=== PATIENT | female | born 1960 | race Caucasian/White ===

== ENCOUNTER 2017-12-18 10:37 | Observation (INO) | payer SELFPAY ==
[2017-12-18] MEDS ORDERED: NS 0.9% 1000 ML* 1,000 ML IV ONE ×2 (10:49→12:12)
[2017-12-18] MEDS ORDERED: Nitroglycerin TAB 0.4 MG* 0.4 MG TAB SL ONE (11:32)
--- NOTE | 2017-12-18 11:33 | RAD ---
Indication: Chest pain. Single frontal view of the chest performed at 1100 hours was reviewed. No prior study is available for comparison. No mediastinal shift is noted. Heart is of normal size and configuration. Lung beltran appear clear. IMPRESSION: NO ACTIVE CARDIOPULMONARY DISEASE IS NOTED.
[2017-12-18 11:49] LABS: INR 1.05 (0.77-1.02)
[2017-12-18 11:55] LABS: EGFR Non-African American 64.1 (>60)
--- NOTE | 2017-12-18 12:19 | RAD ---
Indication: Confusion. CT of the brain was performed without IV contrast. Ventricular structures are midline. No midline shift is noted. The extra-axial spaces are unremarkable. There is no evidence of intracranial mass or hemorrhage. No other high or low density lesions are identified. Mastoid air cells and paranasal sinuses are otherwise unremarkable. IMPRESSION: No intracranial mass or hemorrhage is noted.
[2017-12-18 12:26] LABS: ABS Basophils 0.1 10^3/ul (0-0.2); ABS Eosinophils 0.1 10^3/ul (0-0.6); ABS Lymphocytes 2.1 10^3/ul (1.0-4.8); ABS Monocytes 0.6 10^3/ul (0-0.8); ABS Neutrophils 9.1 10^3/ul (1.5-7.7); ABS Nucleated RBC 0 10^3/ul; Eosinophil % 0.4 % (0-6); Hematocrit 38 % (35-47); Hemoglobin 13.1 g/dl (12.0-16.0); Lymphocyte % 17.7 % (25-47); Mean Corpuscular HGB Conc 34 g/dl (31-36); Mean Corpuscular Hemoglobin 35 pg (27-31); Mean Corpuscular Volume 102 fL (80-97); Mean Platelet Volume 7.8 um3 (7.4-10.4); Nucleated Red Blood Cells % 0.1; Platelet Count 254 10^3/ul (150-450); Red Blood Count 3.77 10^6/ul (4.0-5.4); Red Cell Distribution Width 14 % (10.5-15)
[2017-12-18] MEDS ORDERED: Iodixanol* (CONTRAST) 320 MG/ML 100 ML SDV IV ONE (12:42)
[2017-12-18] MEDS ORDERED: Magnesium Sulfate 2 GM IV* 2 GM/50 ML BAG IVPB ONE (12:44)
[2017-12-18 13:55] LABS: Urine Appearance Clear; Urine Blood Negative (Negative); Urine Color Straw; Urine Ketones 2+ (Negative); Urine Protein Negative (Negative); Urine Urobilinogen Negative (Negative)
--- NOTE | 2017-12-18 14:07 | RAD ---
Indication: Positive d-dimer, epigastric pain. Contrast:Administered 64.2 ml of VISAPAQUE 320 mg/ml CTA of the chest, abdomen and pelvis was performed after IV contrast. Coronal and sagittal reconstructed images were obtained. The inferior thyroid lobes are unremarkable. There is no mediastinal or hilar adenopathy. The heart demonstrates no pericardial effusion. The pulmonary arterial tree is well opacified. There are no filling defects present to suggest pulmonary embolus. The heart demonstrates no pericardial effusion. The changes and major bronchi appear patent. The lung beltran demonstrate no evidence of alveolar consolidation. No pleural fluid is identified. No pneumothorax is noted. The thoracic aorta demonstrates no evidence of aortic dissection or aneurysmal dilatation. No pericardial effusion is noted. CT of the abdomen demonstrates liver to be normal in size. No focal lesions or intrahepatic ductal dilatation is noted. The gallbladder demonstrates no calcified gallstones, pericholecystic fluid or wall thickening. The spleen is normal in size. Pancreas demonstrates no mass or pancreatic duct dilatation. The gallbladder demonstrates no calcified gallstones. No pericholecystic fluid or wall thickening is identified. The stomach is distended. There is circumferential wall thickening of the gastric antrum. The possibility of antral gastritis should BE considered. Small amount of contrast is noted in the small bowel. The possibility of the shoulder gastric outlet obstruction should BE considered. No adrenal masses are noted. The kidneys demonstrate symmetric nephrograms without hydronephrosis. There is symmetric excretion bilaterally. Small bowel demonstrates no abnormal dilatation. Stool is present throughout the colon. No retroperitoneal or pelvic lymphadenopathy is noted. Urinary bladder is distended. No hernias are noted. Degenerative changes of the lower lumbar spine is noted. IMPRESSION: No evidence of pulmonary embolus is noted. No evidence of thoracic aortic dissection or aneurysmal dilatation is noted. There is a moderately dilated stomach with mucosal thickening of the distal antrum and the possibility of antral gastritis with a partial gastric outlet obstruction should BE considered.
[2017-12-18] MEDS ORDERED: Ondansetron INJ* 2 MG/ML VIAL IV ONE (15:57)
--- NOTE | 2017-12-18 16:40 | ED ---
William Pires Jennifer, scribed for Lenard Krause MD on 12/18/17 at 1130 . HPI Chest Pain - HPI Summary HPI Summary: The patient is a 57 year old female who comes to [facility] via ambulance for chest pain that began two hours ago. The patient describes she woke up this morning and felt like she had low blood sugar. She drank some juice and ate a fiber one bar. However, she began to have midsternal chest pain and vomited a few times. She rates the chest pain a 5/10. The patient was given NTG and Aspirin in the ambulance but reports no change in pain. She additionally complains of nausea, numbness in her left fingers, shaking in her right arm, weakness in both arms, swelling and cramping in both ankles, headache at the temples, a hot flushed feeling, lightheaded, confusion, and feeling like shes dreaming. The patient denies shortness of breath. She adds that this felt similar to when she had pancreatitis. The patient was accompanied by a friend who added that the last time she appeared to be normal was two days ago. - History of Current Complaint Chief Complaint: EDChestPainROMI Time Seen by Provider: 12/18/17 10:47 Hx Obtained From: Patient Onset/Duration: Started Hours Ago - two hours, Still Present Timing: Constant Initial Severity: Moderate Current Severity: Moderate Pain Intensity: 5 Pain Scale Used: 0-10 Numeric Chest Pain Location: Mid Sternal Chest Pain Radiates: No Aggravating Factor(s): Nothing Alleviating Factor(s): Nothing Associated Signs and Symptoms: Positive: Other: - vomiting, nausea, numbness in left fingers, shaking in right arm, weakness in both arms, swelling and cramping of the ankles, headache at the temples, hot flushed feeling, lightheaded, confusion, feeling like she's dreaming. NEGATIVE: shortness of breath Related History: Similar Episode/Dx as: - pancreatitis. Also had similar pain three weeks ago - Allergy/Home Medications Allergies/Adverse Reactions: Allergies Allergy/AdvReac Type Severity Reaction Status Date / Time No Known Allergies Allergy Verified 12/18/17 12:00 Home Medications: Home Medications Ascorbic Acid TAB* [Vitamin C TAB*] 500 mg PO DAILY 12/18/17 [History Confirmed 12/18/17] Aspirin EC TAB* [Ecotrin EC Low Dose 81 MG*] 81 mg PO DAILY 12/18/17 [History Confirmed 12/18/17] Calcium Carbonate [Calcium] 1,200 mg PO DAILY 12/18/17 [History Confirmed ] Cholecalciferol TAB* [Vitamin D TAB*] 1,000 unit PO DAILY 12/18/17 [History Confirmed 12/18/17] Citalopram TAB* [CeleXA TAB*] 20 mg PO DAILY 12/18/17 [History Confirmed ] Docusate Sodium [Stool Softener] 100 mg PO DAILY 12/18/17 [History Confirmed ] Ferrous Gluconate TAB* [Fergon TAB*] 325 mg PO DAILY 12/18/17 [History Confirmed 12/18/17] Fluticasone NASAL SPRAY 50MCG* [Flonase NASAL SPRAY 50MCG*] 2 spray BOTH NARES DAILY 12/18/17 [History Confirmed 12/18/17] Insulin GLARGINE(*) [Lantus(*)] 7 units SUBCUT ONCE 12/18/17 [History Confirmed 12/18/17] Insulin LISPRO* [HumaLOG*] 5 units SUBCUT BID 12/18/17 [History Confirmed ] Insulin LISPRO* [HumaLOG*] 10 units SUBCUT QAM 12/18/17 [History Confirmed 12/18] Losartan TAB* [Cozaar TAB*] 25 mg PO DAILY 12/18/17 [History Confirmed 12/18/17] Lovastatin(NF) [Mevacor(NF)] 20 mg PO DAILY 12/18/17 [History Confirmed 12/18/17 ] Magnesium Oxide [Magnesium] 250 mg PO BID 12/18/17 [History Confirmed 12/18/17] Niacin ER TAB* [Niaspan ER TAB*] 2,000 mg PO DAILY 12/18/17 [History Confirmed 12/18/17] [place]-3 Fatty Acids (Nf) [Fish Oil (NF)] 2,400 mg PO TID 12/18/17 [History Confirmed 12/18/17] Pantoprazole TAB (NF) [Protonix TAB (NF)] 40 mg PO TID 12/18/17 [History Confirmed 12/18/17] Pioglitazone TAB* [Actos TAB*] 45 mg PO DAILY 12/18/17 [History Confirmed ] Polyethylene Glycol 3350* [Miralax*] 17 gm PO DAILY 12/18/17 [History Confirmed 12/18/17] Psyllium LUIS MANUEL* [Metamucil LUIS MANUEL*] 1 pkt PO DAILY 12/18/17 [History Confirmed ] Ropinirole TAB* [Requip TAB*] 0.5 mg PO DAILY 12/18/17 [History Confirmed ] Vitamin B Complex CAP* [B Complex CAP*] 1 cap PO DAILY 12/18/17 [History Confirmed 12/18/17] glipiZIDE TAB* [Glucotrol TAB*] 10 mg PO BID 12/18/17 [History Confirmed ] metFORMIN* [Glucophage 500 MG TAB *] 500 mg PO TID 12/18/17 [History Confirmed 12/18/17] PMH/Surg Hx/FS Hx/Imm Hx Endocrine/Hematology History: Reports: Hx Diabetes - Type 2 Cardiovascular History: Reports: Hx Hypercholesterolemia, Hx Hypertension GI History: Reports: Other GI Disorders - Pancreatitis - Surgical History Surgery Procedure, Year, and Place: Hysterectomy Infectious Disease History: No Infectious Disease History: Denies: Traveled Outside the [place] in Last 30 Days - Family History Known Family History: Positive: Hypertension - Mother - Social History Substance Use Type: Reports: None Review of Systems Positive: Other - hot, flushed Positive: Chest Pain Negative: Shortness Of Breath Positive: Vomiting, Nausea Positive: Edema - swelling and cramping of ankles Neurological: Other - Confusion, shaking in right arm, lightheaded, feeling like she's dreaming Positive: Headache, Weakness, Numbness All Other Systems Reviewed And Are Negative: Yes Physical Exam - Summary Physical Exam Summary: General: The patient is confused, no pain distress Skin: warm, color reflects adequate perfusion, dry Head: normal Eyes: EOMI, DAT ENT: normal Neck: supple, nontender Respiratory: CTA, breath sounds present Cardiovascular: RRR Abdomen: soft, nontender Bowel: present Musculoskeletal: normal, strength/ROM intact Neurological: GCS 15, sensory/motor intact, A&O x3 Psychological: confused Triage Information Reviewed: Yes Vital Signs On Initial Exam: Initial Vitals Temp Pulse Resp BP Pulse Ox 99.0 F 89 16 118/53 100 12/18/17 10:50 12/18/17 10:50 12/18/17 10:50 12/18/17 10:50 12/18/17 10:50 Vital Signs Reviewed: Yes - [place] Coma Scale Best Eye Response: 4 - Spontaneous Best Motor Response: 6 - Obeys Commands Best Verbal Response: 5 - Oriented Coma Scale Total: 15 Diagnostics - Vital Signs Vital Signs Temp Pulse Resp BP Pulse Ox 12/18/17 11:22 96 12/18/17 11:00 88 12 100 12/18/17 10:53 90 16 118/53 98 12/18/17 10:52 19 12/18/17 10:50 99.0 F 89 16 118/53 100 - Laboratory Lab Results: Lab Results 12/18/17 12/18/17 12/18/17 Range/Units 11:20 11:20 11:20 WBC (3.5-10.8) 10^3/ul RBC (4.0-5.4) 10^6/ul Hgb (12.0-16.0) g/dl Hct (35-47) % MCV (80-97) fL MCH (27-31) pg MCHC (31-36) g/dl RDW (10.5-15) % Plt Count (150-450) 10^3/ul MPV (7.4-10.4) um3 Neut % (Auto) (38-83) % Lymph % (Auto) (25-47) % [place] % (Auto) (0-7) % Eos % (Auto) (0-6) % Baso % (Auto) (0-2) % Absolute Neuts (auto) (1.5-7.7) 10^3/ul Absolute Lymphs (auto) (1.0-4.8) 10^3/ul Absolute Monos (auto) (0-0.8) 10^3/ul Absolute Eos (auto) (0-0.6) 10^3/ul Absolute Basos (auto) (0-0.2) 10^3/ul Absolute Nucleated RBC 10^3/ul Nucleated RBC % INR (Anticoag Therapy) (0.77-1.02) APTT (26.0-36.3) seconds D-Dimer, Quantitative (Less Than 230) ng/mL Sodium 143 (139-145) mmol/L Potassium 3.8 (3.5-5.0) mmol/L Chloride 101 (101-111) mmol/L Carbon Dioxide 16 L (22-32) mmol/L Anion Gap 26 H (2-11) mmol/L BUN 19 (6-24) mg/dL Creatinine 0.90 (0.51-0.95) mg/dL Est GFR ( Amer) 82.4 (>60) Est GFR (Non-Af Amer) 64.1 (>60) BUN/Creatinine Ratio 21.1 H (8-20) Glucose 79 (70-100) mg/dL Lactic Acid 8.8 H* (0.5-2.0) mmol/L Calcium 9.5 (8.6-10.3) mg/dL Magnesium 1.6 L (1.9-2.7) mg/dL Total Bilirubin 0.50 (0.2-1.0) mg/dL AST 32 (13-39) U/L ALT 23 (7-52) U/L Alkaline Phosphatase 52 (34-104) U/L Ammonia (16-53) mcmol/L Total Creatine Kinase 83 (10-223) U/L CK-MB (CK-2) 1.7 (0.6-6.3) ng/mL Troponin I 0.01 (<0.04) ng/mL C-Reactive Protein < 1.00 (< 5.00) mg/L B-Natriuretic Peptide 44 ( - 100) pg/mL Total Protein 6.3 L (6.4-8.9) g/dL Albumin 3.9 (3.2-5.2) g/dL Globulin 2.4 (2-4) g/dL Albumin/Globulin Ratio 1.6 (1-3) Lipase 41 (11.0-82.0) U/L TSH 1.00 (0.34-5.60) mcIU/mL Urine Color Urine Appearance Urine pH (5-9) Ur Specific [place] (1.010-1.030) Urine Protein (Negative) Urine Ketones (Negative) Urine Blood (Negative) Urine Nitrate (Negative) Urine Bilirubin (Negative) Urine Urobilinogen (Negative) Ur Leukocyte Esterase (Negative) Urine Glucose (Negative) 12/18/17 12/18/17 12/18/17 Range/Units 11:20 12:17 13:33 WBC 12.0 H (3.5-10.8) 10^3/ul RBC 3.77 L (4.0-5.4) 10^6/ul Hgb 13.1 (12.0-16.0) g/dl Hct 38 (35-47) % MCV 102 H (80-97) fL MCH 35 H (27-31) pg MCHC 34 (31-36) g/dl RDW 14 (10.5-15) % Plt Count 254 (150-450) 10^3/ul MPV 7.8 (7.4-10.4) um3 Neut % (Auto) 76.1 (38-83) % Lymph % (Auto) 17.7 L (25-47) % [place] % (Auto) 4.9 (0-7) % Eos % (Auto) 0.4 (0-6) % Baso % (Auto) 0.9 (0-2) % Absolute Neuts (auto) 9.1 H (1.5-7.7) 10^3/ul Absolute Lymphs (auto) 2.1 (1.0-4.8) 10^3/ul Absolute Monos (auto) 0.6 (0-0.8) 10^3/ul Absolute Eos (auto) 0.1 (0-0.6) 10^3/ul Absolute Basos (auto) 0.1 (0-0.2) 10^3/ul Absolute Nucleated RBC 0 10^3/ul Nucleated RBC % 0.1 INR (Anticoag Therapy) 1.05 H (0.77-1.02) APTT 26.2 (26.0-36.3) seconds D-Dimer, Quantitative 942 H (Less Than 230) ng/mL Sodium (139-145) mmol/L Potassium (3.5-5.0) mmol/L Chloride (101-111) mmol/L Carbon Dioxide (22-32) mmol/L Anion Gap (2-11) mmol/L BUN (6-24) mg/dL Creatinine (0.51-0.95) mg/dL Est GFR ( Amer) (>60) Est GFR (Non-Af Amer) (>60) BUN/Creatinine Ratio (8-20) Glucose (70-100) mg/dL Lactic Acid (0.5-2.0) mmol/L Calcium (8.6-10.3) mg/dL Magnesium (1.9-2.7) mg/dL Total Bilirubin (0.2-1.0) mg/dL AST (13-39) U/L ALT (7-52) U/L Alkaline Phosphatase (34-104) U/L Ammonia (16-53) mcmol/L Total Creatine Kinase (10-223) U/L CK-MB (CK-2) (0.6-6.3) ng/mL Troponin I (<0.04) ng/mL C-Reactive Protein (< 5.00) mg/L B-Natriuretic Peptide ( - 100) pg/mL Total Protein (6.4-8.9) g/dL Albumin (3.2-5.2) g/dL Globulin (2-4) g/dL Albumin/Globulin Ratio (1-3) Lipase (11.0-82.0) U/L TSH (0.34-5.60) mcIU/mL Urine Color Straw Urine Appearance Clear Urine pH 5.0 (5-9) Ur Specific [place] 1.010 (1.010-1.030) Urine Protein Negative (Negative) Urine Ketones 2+ A (Negative) Urine Blood Negative (Negative) Urine Nitrate Negative (Negative) Urine Bilirubin Negative (Negative) Urine Urobilinogen Negative (Negative) Ur Leukocyte Esterase Negative (Negative) Urine Glucose Negative (Negative) 12/18/17 12/18/17 Range/Units 14:30 15:12 WBC (3.5-10.8) 10^3/ul RBC (4.0-5.4) 10^6/ul Hgb (12.0-16.0) g/dl Hct (35-47) % MCV (80-97) fL MCH (27-31) pg MCHC (31-36) g/dl RDW (10.5-15) % Plt Count (150-450) 10^3/ul MPV (7.4-10.4) um3 Neut % (Auto) (38-83) % Lymph % (Auto) (25-47) % [place] % (Auto) (0-7) % Eos % (Auto) (0-6) % Baso % (Auto) (0-2) % Absolute Neuts (auto) (1.5-7.7) 10^3/ul Absolute Lymphs (auto) (1.0-4.8) 10^3/ul Absolute Monos (auto) (0-0.8) 10^3/ul Absolute Eos (auto) (0-0.6) 10^3/ul Absolute Basos (auto) (0-0.2) 10^3/ul Absolute Nucleated RBC 10^3/ul Nucleated RBC % INR (Anticoag Therapy) (0.77-1.02) APTT (26.0-36.3) seconds D-Dimer, Quantitative (Less Than 230) ng/mL Sodium (139-145) mmol/L Potassium (3.5-5.0) mmol/L Chloride (101-111) mmol/L Carbon Dioxide (22-32) mmol/L Anion Gap (2-11) mmol/L BUN (6-24) mg/dL Creatinine (0.51-0.95) mg/dL Est GFR ( Amer) (>60) Est GFR (Non-Af Amer) (>60) BUN/Creatinine Ratio (8-20) Glucose (70-100) mg/dL Lactic Acid (0.5-2.0) mmol/L Calcium (8.6-10.3) mg/dL Magnesium (1.9-2.7) mg/dL Total Bilirubin (0.2-1.0) mg/dL AST (13-39) U/L ALT (7-52) U/L Alkaline Phosphatase (34-104) U/L Ammonia 27 (16-53) mcmol/L Total Creatine Kinase (10-223) U/L CK-MB (CK-2) (0.6-6.3) ng/mL Troponin I 0.01 (<0.04) ng/mL C-Reactive Protein (< 5.00) mg/L B-Natriuretic Peptide ( - 100) pg/mL Total Protein (6.4-8.9) g/dL Albumin (3.2-5.2) g/dL Globulin (2-4) g/dL Albumin/Globulin Ratio (1-3) Lipase (11.0-82.0) U/L TSH (0.34-5.60) mcIU/mL Urine Color Urine Appearance Urine pH (5-9) Ur Specific [place] (1.010-1.030) Urine Protein (Negative) Urine Ketones (Negative) Urine Blood (Negative) Urine Nitrate (Negative) Urine Bilirubin (Negative) Urine Urobilinogen (Negative) Ur Leukocyte Esterase (Negative) Urine Glucose (Negative) Result Diagrams: 12/18/17 12:17 12/18/17 11:20 Lab Statement: Any lab studies that have been ordered have been reviewed, and results considered in the medical decision making process. - Radiology CXR Xray Interpretation: No Acute Changes - NO ACTIVE CARDIOPULMONARY DISEASE IS NOTED. Dr. Krause has reviewed this report. Radiology Interpretation Completed By: Radiologist - CT Brain CT CT Interpretation: No Acute Changes - No intracranial mass or hemorrhage is noted. Dr. Krause has reviewed this report. CT Interpretation Completed By: Radiologist Chest/Abdomen/Pelvis CTA CT Interpretation: No Acute Changes - No evidence of pulmonary embolus is noted. No evidence of thoracic aortic dissection or aneurysmal dilatation is noted. There is a moderately dilated stomach with mucosal thickening of the distal antrum and the possibility of antral gastritis with a partial gastric outlet obstruction should BE considered. Dr. Krause has reviewed this report. CT Interpretation Completed By: Radiologist - EKG 10:53 Cardiac Rate: NL EKG Rhythm: Sinus Rhythm - [address] Segment: Non-Specific - Sagging T waves in V2-V5 Ectopy: None Chest Pain Course/Dx - Course Course Of Treatment: ADMIT HOSPITALIST. CRITICAL CARE TIME LESS THAN 30 MINUTES. - Diagnoses Provider Diagnoses: Chest pain, Lactic acidosis, Abdominal pain Discharge - Sign-Out/Discharge Documenting (check all that apply): Discharge - Discharge Plan Condition: Stable Disposition: ADMITTED TO [facility] - Billing Disposition and Condition Condition: STABLE [place] [facility] [place] The documentation as recorded by the William gonzalez Jennifer accurately reflects the service I personally performed and the decisions made by , Lenard Krause MD.
[2017-12-18] MEDS ORDERED: Dextrose 50% Syringe 50 ML* 25 GM/50 ML SYRINGE IV PUSH PRN ×2 (17:03→17:08)
[2017-12-18] MEDS ORDERED: Ibuprofen TAB* 600 MG PO ONE (17:16)
[2017-12-18] MEDS ORDERED: Ibuprofen TAB* 600 MG ONE (17:18)
--- NOTE | 2017-12-18 17:23 | ADMNOTE ---
Subjective Date of Service: 12/18/17 Interval History: ADMISSION HISTORY AND PHYSICAL EXAM: Allergies Allergy/AdvReac Type Severity Reaction Status Date / Time No Known Allergies Allergy Verified 12/18/17 12:00 Home Medications Medication Instructions Recorded Confirmed Type Ascorbic Acid TAB* [Vitamin C 500 mg PO DAILY 12/18/17 12/18/17 History TAB*] Aspirin EC TAB* [Ecotrin EC Low 81 mg PO DAILY 12/18/17 12/18/17 History Dose 81 MG*] Calcium Carbonate [Calcium] 1,200 mg PO DAILY 12/18/17 12/18/17 History Cholecalciferol TAB* [Vitamin D 1,000 unit PO DAILY 12/18/17 12/18/17 History TAB*] Citalopram TAB* [CeleXA TAB*] 20 mg PO DAILY 12/18/17 12/18/17 History Docusate Sodium [Stool Softener] 100 mg PO DAILY 12/18/17 12/18/17 History Ferrous Gluconate TAB* [Fergon 325 mg PO DAILY 12/18/17 12/18/17 History TAB*] Fluticasone NASAL SPRAY 50MCG* 2 spray BOTH NARES DAILY 12/18/17 12/18/17 History [Flonase NASAL SPRAY 50MCG*] Insulin GLARGINE(*) [Lantus(*)] 7 units SUBCUT ONCE 12/18/17 12/18/17 History Insulin LISPRO* [HumaLOG*] 5 units SUBCUT BID 12/18/17 12/18/17 History Insulin LISPRO* [HumaLOG*] 10 units SUBCUT QAM 12/18/17 12/18/17 History Losartan TAB* [Cozaar TAB*] 25 mg PO DAILY 12/18/17 12/18/17 History Lovastatin(NF) [Mevacor(NF)] 20 mg PO DAILY 12/18/17 12/18/17 History Magnesium Oxide [Magnesium] 250 mg PO BID 12/18/17 12/18/17 History Niacin ER TAB* [Niaspan ER TAB*] 2,000 mg PO DAILY 12/18/17 12/18/17 History [place]-3 Fatty Acids (Nf) [Fish Oil 2,400 mg PO TID 12/18/17 12/18/17 History (NF)] Pantoprazole TAB (NF) [Protonix 40 mg PO TID 12/18/17 12/18/17 History TAB (NF)] Pioglitazone TAB* [Actos TAB*] 45 mg PO DAILY 12/18/17 12/18/17 History Polyethylene Glycol 3350* 17 gm PO DAILY 12/18/17 12/18/17 History [Miralax*] Psyllium LUIS MANUEL* [Metamucil LUIS MANUEL*] 1 pkt PO DAILY 12/18/17 12/18/17 History Ropinirole TAB* [Requip TAB*] 0.5 mg PO DAILY 12/18/17 12/18/17 History Vitamin B Complex CAP* [B Complex 1 cap PO DAILY 12/18/17 12/18/17 History CAP*] glipiZIDE TAB* [Glucotrol TAB*] 10 mg PO BID 12/18/17 12/18/17 History metFORMIN* [Glucophage 500 MG TAB 500 mg PO TID 12/18/17 12/18/17 History *] HPI: The patient was in her usual state of health the day before admission. She drove with her to [place] to visit her son and grandchild. She stayed in their house last night. She awoke about 9 AM and felt shaky, typical of low blood sugar for her. She went and drank some juice and had a snack. She did not check her blood sugar. For about 3 hours she was confused and could not remember what she did. She now feels nl. She did not eat lunch today. She had palpitations and some chest pain, some burning in her R arm. Family History: Findings - Mother unexpectedly in her sleep age 43. Father of Alzheimer's disease. Many maternal relatives and pt's children have familial partial lipodystrophy. Social History: Findings - Never smoked. No alcohol abuse. Lives with her who is her SDM. Past Medical History: Findings - Familial partial lipodystrophy. DM since 1997. Hemorrhoidectomy x 2. 4 children. D&C. BL corneal transplants. Review of Systems - Measurements Intake and Output: Intake and Output Last 24 Hours 12/16/17 12/17/17 12/18/17 12/19/17 06:59 06:59 06:59 06:59 Weight 120 lb - Review of Systems Constitutional Symptoms: Negative: Weight Gain, Weight Loss, Weakness, Fatigue, Fever, Night Sweats, Unexplained Falls, Other Dermatology: Positive: Normal HEENT: Positive: Normal Eyes: Positive: Other - corneal transplants Thyroid: Positive: Normal Pulmonary: Positive: Normal Cardiology: Positive: Chest Pain, Palpitations Gastroenterology: Positive: Nausea Genital - Urinary: Positive: Normal Musculoskeletal: Negative: Joint Pain, Joint Stiffness, Arthritis, Osteoporosis, Low Back Pain , Sciatica, Joint Deformities, Kyphoscoliosis, Other Endocrinology: Positive: Diabetes Mellitus Hematologic/Lymphatic: Negative: Anemia, Easy Brusing, Hx Leukemia, Hx Lymphoma, Use of Anticoagulant, Use of Antiplatelet Drugs, Other Psychiatry: Positive: Normal Allergic/Immunologic: Negative: Hx Anaphylaxis, Hx Angioedema, Hx Environmental, Hx Seasonal, Athsma, Hx HIV, Immunocompromise, Swollen Glands LymphNodes, Other Objective Active Medications: Aspirin (Aspirin Ec Tab*) 81 mg PO DAILY [facility] Calcium Carbonate (Calcium Carbonate Tab*) 1,200 mg PO DAILY [facility] Cholecalciferol (Vitamin D Tab*) 1,000 units PO DAILY [facility] Citalopram Hydrobromide (Celexa Tab*) 20 mg PO DAILY [facility] Dextrose (D50w Syringe 50 Ml*) 12.5 gm IV PUSH .FOR FS < 60 - SS PRN PRN Reason: FS < 60 Dextrose (D50w Syringe 50 Ml*) 12.5 gm IV PUSH .FOR FS < 60 - SS PRN PRN Reason: FS < 60 Docusate Sodium (Colace Cap*) 100 mg PO DAILY [facility] Fluticasone Propionate (Flonase Nasal [place] 50mcg*) 2 spray BOTH NARES DAILY [facility] Glipizide (Glucotrol Tab*) 10 mg PO BID [facility] Insulin Glargine (Lantus(*)) 7 units SUBCUT BEDTIME [facility] Insulin Human Lispro (Humalog*) 0 units SUBCUT ACHS [facility] PRN Reason: Protocol Insulin Human Lispro (Humalog*) 0 units SUBCUT ACHS [facility] PRN Reason: Protocol Losartan Potassium (Cozaar Tab*) 25 mg PO DAILY [facility] Lovastatin (Mevacor(Nf)) 20 mg PO DAILY [facility] Niacin (Niaspan Er Tab*) 2,000 mg PO DAILY [facility] Pantoprazole Sodium (Protonix Tab (Nf)) 40 mg PO TID [facility] Pioglitazone HCl (Actos Tab*) 45 mg PO DAILY [facility] Polyethylene Glycol/Electrolytes (Miralax*) 17 gm PO DAILY [facility] Psyllium Hydrophilic Mucilloid (Metamucil Luis Manuel*) 1 pkt PO DAILY [facility] Ropinirole HCl (Requip Tab*) 0.5 mg PO DAILY [facility] Vital Signs - 8 hr 12/18/17 12/18/17 12/18/17 10:50 10:52 10:53 Temperature 99.0 F Pulse Rate 89 90 Respiratory 16 19 16 Rate Blood Pressure 118/53 118/53 (mmHg) O2 Sat by Pulse 100 98 Oximetry 12/18/17 12/18/17 12/18/17 11:00 11:22 11:30 Temperature Pulse Rate 88 94 Respiratory 12 13 Rate Blood Pressure (mmHg) O2 Sat by Pulse 100 96 100 Oximetry 12/18/17 12/18/17 12:00 12:01 Temperature Pulse Rate 101 101 Respiratory 18 20 Rate Blood Pressure 136/72 (mmHg) O2 Sat by Pulse 100 100 Oximetry Oxygen Devices in Use Now: None Appearance: Alert, partly up on ED stretcher. In good spirits. Looks comfortable. Eyes: No Scleral Icterus Ears/Nose/Mouth/Throat: Clear Oropharnyx, Mucous Membranes Moist Neck: NL Appearance and Movements; NL JVP Respiratory: Symmetrical Chest Expansion and Respiratory Effort, Clear to Auscultation, Clear to Percussion Cardiovascular: NL Sounds; No Murmurs; No JVD, RRR, No Edema, - Extremities: No Edema, No Clubbing, Cyanosis, - - Absence of fat on arms and legs. Skin: No Rash or Ulcers, No Nodules or Sclerosis, - Neurological: Alert and Oriented x 3, NL Sensation Result Diagrams: 12/19/17 05:05 12/18/17 11:20 Additional Lab and Data: Lab Results 12/18/17 12/18/17 12/18/17 Range/Units 11:20 11:20 11:20 WBC (3.5-10.8) 10^3/ul RBC (4.0-5.4) 10^6/ul Hgb (12.0-16.0) g/dl Hct (35-47) % MCV (80-97) fL MCH (27-31) pg MCHC (31-36) g/dl RDW (10.5-15) % Plt Count (150-450) 10^3/ul MPV (7.4-10.4) um3 Neut % (Auto) (38-83) % Lymph % (Auto) (25-47) % [place] % (Auto) (0-7) % Eos % (Auto) (0-6) % Baso % (Auto) (0-2) % Absolute Neuts (auto) (1.5-7.7) 10^3/ul Absolute Lymphs (auto) (1.0-4.8) 10^3/ul Absolute Monos (auto) (0-0.8) 10^3/ul Absolute Eos (auto) (0-0.6) 10^3/ul Absolute Basos (auto) (0-0.2) 10^3/ul Absolute Nucleated RBC 10^3/ul Nucleated RBC % INR (Anticoag Therapy) (0.77-1.02) APTT (26.0-36.3) seconds D-Dimer, Quantitative (Less Than 230) ng/mL Sodium 143 (139-145) mmol/L Potassium 3.8 (3.5-5.0) mmol/L Chloride 101 (101-111) mmol/L Carbon Dioxide 16 L (22-32) mmol/L Anion Gap 26 H (2-11) mmol/L BUN 19 (6-24) mg/dL Creatinine 0.90 (0.51-0.95) mg/dL Est GFR ( Amer) 82.4 (>60) Est GFR (Non-Af Amer) 64.1 (>60) BUN/Creatinine Ratio 21.1 H (8-20) Glucose 79 (70-100) mg/dL Lactic Acid 8.8 H* (0.5-2.0) mmol/L Calcium 9.5 (8.6-10.3) mg/dL Magnesium 1.6 L (1.9-2.7) mg/dL Total Bilirubin 0.50 (0.2-1.0) mg/dL AST 32 (13-39) U/L ALT 23 (7-52) U/L Alkaline Phosphatase 52 (34-104) U/L Ammonia (16-53) mcmol/L Total Creatine Kinase 83 (10-223) U/L CK-MB (CK-2) 1.7 (0.6-6.3) ng/mL Troponin I 0.01 (<0.04) ng/mL C-Reactive Protein < 1.00 (< 5.00) mg/L B-Natriuretic Peptide 44 ( - 100) pg/mL Total Protein 6.3 L (6.4-8.9) g/dL Albumin 3.9 (3.2-5.2) g/dL Globulin 2.4 (2-4) g/dL Albumin/Globulin Ratio 1.6 (1-3) Lipase 41 (11.0-82.0) U/L TSH 1.00 (0.34-5.60) mcIU/mL Urine Color Urine Appearance Urine pH (5-9) Ur Specific [place] (1.010-1.030) Urine Protein (Negative) Urine Ketones (Negative) Urine Blood (Negative) Urine Nitrate (Negative) Urine Bilirubin (Negative) Urine Urobilinogen (Negative) Ur Leukocyte Esterase (Negative) Urine Glucose (Negative) 12/18/17 12/18/17 12/18/17 Range/Units 11:20 12:17 13:33 WBC 12.0 H (3.5-10.8) 10^3/ul RBC 3.77 L (4.0-5.4) 10^6/ul Hgb 13.1 (12.0-16.0) g/dl Hct 38 (35-47) % MCV 102 H (80-97) fL MCH 35 H (27-31) pg MCHC 34 (31-36) g/dl RDW 14 (10.5-15) % Plt Count 254 (150-450) 10^3/ul MPV 7.8 (7.4-10.4) um3 Neut % (Auto) 76.1 (38-83) % Lymph % (Auto) 17.7 L (25-47) % [place] % (Auto) 4.9 (0-7) % Eos % (Auto) 0.4 (0-6) % Baso % (Auto) 0.9 (0-2) % Absolute Neuts (auto) 9.1 H (1.5-7.7) 10^3/ul Absolute Lymphs (auto) 2.1 (1.0-4.8) 10^3/ul Absolute Monos (auto) 0.6 (0-0.8) 10^3/ul Absolute Eos (auto) 0.1 (0-0.6) 10^3/ul Absolute Basos (auto) 0.1 (0-0.2) 10^3/ul Absolute Nucleated RBC 0 10^3/ul Nucleated RBC % 0.1 INR (Anticoag Therapy) 1.05 H (0.77-1.02) APTT 26.2 (26.0-36.3) seconds D-Dimer, Quantitative 942 H (Less Than 230) ng/mL Sodium (139-145) mmol/L Potassium (3.5-5.0) mmol/L Chloride (101-111) mmol/L Carbon Dioxide (22-32) mmol/L Anion Gap (2-11) mmol/L BUN (6-24) mg/dL Creatinine (0.51-0.95) mg/dL Est GFR ( Amer) (>60) Est GFR (Non-Af Amer) (>60) BUN/Creatinine Ratio (8-20) Glucose (70-100) mg/dL Lactic Acid (0.5-2.0) mmol/L Calcium (8.6-10.3) mg/dL Magnesium (1.9-2.7) mg/dL Total Bilirubin (0.2-1.0) mg/dL AST (13-39) U/L ALT (7-52) U/L Alkaline Phosphatase (34-104) U/L Ammonia (16-53) mcmol/L Total Creatine Kinase (10-223) U/L CK-MB (CK-2) (0.6-6.3) ng/mL Troponin I (<0.04) ng/mL C-Reactive Protein (< 5.00) mg/L B-Natriuretic Peptide ( - 100) pg/mL Total Protein (6.4-8.9) g/dL Albumin (3.2-5.2) g/dL Globulin (2-4) g/dL Albumin/Globulin Ratio (1-3) Lipase (11.0-82.0) U/L TSH (0.34-5.60) mcIU/mL Urine Color Straw Urine Appearance Clear Urine pH 5.0 (5-9) Ur Specific [place] 1.010 (1.010-1.030) Urine Protein Negative (Negative) Urine Ketones 2+ A (Negative) Urine Blood Negative (Negative) Urine Nitrate Negative (Negative) Urine Bilirubin Negative (Negative) Urine Urobilinogen Negative (Negative) Ur Leukocyte Esterase Negative (Negative) Urine Glucose Negative (Negative) 12/18/17 12/18/17 Range/Units 14:30 15:12 WBC (3.5-10.8) 10^3/ul RBC (4.0-5.4) 10^6/ul Hgb (12.0-16.0) g/dl Hct (35-47) % MCV (80-97) fL MCH (27-31) pg MCHC (31-36) g/dl RDW (10.5-15) % Plt Count (150-450) 10^3/ul MPV (7.4-10.4) um3 Neut % (Auto) (38-83) % Lymph % (Auto) (25-47) % [place] % (Auto) (0-7) % Eos % (Auto) (0-6) % Baso % (Auto) (0-2) % Absolute Neuts (auto) (1.5-7.7) 10^3/ul Absolute Lymphs (auto) (1.0-4.8) 10^3/ul Absolute Monos (auto) (0-0.8) 10^3/ul Absolute Eos (auto) (0-0.6) 10^3/ul Absolute Basos (auto) (0-0.2) 10^3/ul Absolute Nucleated RBC 10^3/ul Nucleated RBC % INR (Anticoag Therapy) (0.77-1.02) APTT (26.0-36.3) seconds D-Dimer, Quantitative (Less Than 230) ng/mL Sodium (139-145) mmol/L Potassium (3.5-5.0) mmol/L Chloride (101-111) mmol/L Carbon Dioxide (22-32) mmol/L Anion Gap (2-11) mmol/L BUN (6-24) mg/dL Creatinine (0.51-0.95) mg/dL Est GFR ( Amer) (>60) Est GFR (Non-Af Amer) (>60) BUN/Creatinine Ratio (8-20) Glucose (70-100) mg/dL Lactic Acid (0.5-2.0) mmol/L Calcium (8.6-10.3) mg/dL Magnesium (1.9-2.7) mg/dL Total Bilirubin (0.2-1.0) mg/dL AST (13-39) U/L ALT (7-52) U/L Alkaline Phosphatase (34-104) U/L Ammonia 27 (16-53) mcmol/L Total Creatine Kinase (10-223) U/L CK-MB (CK-2) (0.6-6.3) ng/mL Troponin I 0.01 (<0.04) ng/mL C-Reactive Protein (< 5.00) mg/L B-Natriuretic Peptide ( - 100) pg/mL Total Protein (6.4-8.9) g/dL Albumin (3.2-5.2) g/dL Globulin (2-4) g/dL Albumin/Globulin Ratio (1-3) Lipase (11.0-82.0) U/L TSH (0.34-5.60) mcIU/mL Urine Color Urine Appearance Urine pH (5-9) Ur Specific [place] (1.010-1.030) Urine Protein (Negative) Urine Ketones (Negative) Urine Blood (Negative) Urine Nitrate (Negative) Urine Bilirubin (Negative) Urine Urobilinogen (Negative) Ur Leukocyte Esterase (Negative) Urine Glucose (Negative) Assess/Plan/Problems-Billing Assessment: - Patient Problems (1) Confusion Current Visit: Yes Status: Acute Code(s): R41.0 - DISORIENTATION, UNSPECIFIED SNOMED Code(s): 168303161 Comment: Possibly related to hypoglycemia, possibly to hypoperfusion related to arrhythmia, possibly to transient global amnesia. Tele, glu monitoring achs. (2) Palpitations Current Visit: Yes Status: Acute Code(s): R00.2 - PALPITATIONS SNOMED Code (s): 19678767 Comment: Tele. Echo. (3) Lactic acidosis Current Visit: Yes Status: Acute Code(s): E87.2 - ACIDOSIS SNOMED Code(s) : 39402614 Comment: Likely due to metformin. Repeat lactate level 12/19. Pt advised to never take metformin again. (4) Diabetes Current Visit: Yes Status: Acute Code(s): E11.9 - TYPE 2 DIABETES MELLITUS WITHOUT COMPLICATIONS SNOMED Code(s): 34122586 Comment: Home dose Lantus. SSI. Continue glipizide and pioglitazone.
[2017-12-18] MEDS ORDERED: NS 0.9% 1000 ML* 1,000 ML IV SCH (19:00)
[2017-12-18] MEDS: glipiZIDE TAB* 5 MG PO SCH (20:15)
[2017-12-18] MEDS ORDERED: Insulin GLARGINE(*) 1 UNITS UNIT SUBCUT SCH (21:00)
[2017-12-18] MEDS ORDERED: Insulin LISPRO* 1 UNITS UNIT SUBCUT SCH (21:00)
[2017-12-18] MEDS: CMC: Pantoprazole TAB (NF) 40 MG TAB PO SCH (23:07)
[2017-12-18] MEDS: Insulin LISPRO* 1 UNITS UNIT SUBCUT SCH (23:09)
[2017-12-18] MEDS ORDERED: Fluorometholone 0.1% OPTH.SUS* 5 ML BTL BOTH EYES SCH (23:30)
[2017-12-19 05:46] LABS: ABS Basophils 0 10^3/ul (0-0.2); ABS Eosinophils 0.1 10^3/ul (0-0.6); ABS Lymphocytes 1.8 10^3/ul (1.0-4.8); ABS Monocytes 0.8 10^3/ul (0-0.8); ABS Nucleated RBC 0 10^3/ul; Eosinophil % 0.7 % (0-6); Hematocrit 33 % (35-47); Hemoglobin 11.8 g/dl (12.0-16.0); Lymphocyte % 20.8 % (25-47); Mean Corpuscular HGB Conc 36 g/dl (31-36); Mean Corpuscular Hemoglobin 36 pg (27-31); Mean Corpuscular Volume 99 fL (80-97); Mean Platelet Volume 7.4 um3 (7.4-10.4); Nucleated Red Blood Cells % 0; Platelet Count 206 10^3/ul (150-450); Red Blood Count 3.28 10^6/ul (4.0-5.4); Red Cell Distribution Width 14 % (10.5-15); White Blood Count 8.8 10^3/ul (3.5-10.8)
[2017-12-19] MEDS: Insulin LISPRO* 1 UNITS UNIT SUBCUT SCH ×2 (07:53→12:49)
[2017-12-19] MEDS: glipiZIDE TAB* 5 MG PO SCH (08:43)
[2017-12-19] MEDS: CMC: Pantoprazole TAB (NF) 40 MG TAB PO SCH (08:46)
[2017-12-19] MEDS ORDERED: Ibuprofen TAB* 600 MG PO PRN (08:50)
[2017-12-19] MEDS ORDERED: Psyllium PAK PO SCH (09:00)
[2017-12-19] MEDS ORDERED: Cholecalciferol TAB* 1000 UNITS PO SCH (09:00)
[2017-12-19] MEDS ORDERED: Losartan TAB* 25 MG PO SCH (09:00)
[2017-12-19] MEDS ORDERED: Ropinirole TAB* 0.5 MG TAB PO SCH (09:00)
[2017-12-19] MEDS ORDERED: Polyethylene Glycol 3350* 17 GM PACKET PO SCH (09:00)
[2017-12-19] MEDS ORDERED: Niacin ER TAB* 500 MG PO SCH (09:00)
[2017-12-19] MEDS ORDERED: LOVASTATIN 10 MG PO SCH (09:00)
[2017-12-19] MEDS ORDERED: Docusate CAP* 100 MG PO SCH (09:00)
[2017-12-19] MEDS ORDERED: Fluticasone NASAL SPRAY 50MCG* 16 gm SPRAY BTL BOTH NARES SCH (09:00)
[2017-12-19] MEDS ORDERED: Pioglitazone TAB* 15 MG PO SCH (09:00)
[2017-12-19] MEDS ORDERED: Aspirin EC TAB* 81 MG TAB.EC PO SCH (09:00)
[2017-12-19] MEDS ORDERED: Calcium Carbonate TAB* 1250 MG (CALCIUM 500 MG) PO SCH (09:00)
[2017-12-19] MEDS ORDERED: Citalopram TAB* 20 MG PO SCH (09:00)
--- NOTE | 2017-12-19 10:05 | DS ---
DISCHARGE SUMMARY: DATE OF ADMISSION: DATE OF DISCHARGE: 12/19/17 HOSPITAL COURSE: This 57-year-old woman presented after an episode of confusion. She had felt shaky in the morning before breakfast. She thought she was having low blood sugar and had some caloric intake. She did not check her blood sugar at home. She was actually staying at her son's house. She is visiting here from [place]. For about 3 hours, she really cannot remember what she had been doing and acted confused when other people spoke to her. She never had an episode like this before. She feels she is back to normal now. She did have some vague chest pain and palpitations. The patient was admitted to a telemetry unit. She had no significant arrhythmias. Echocardiogram has been done before discharge and the results are pending at the time of this dictation. She had 3 troponin levels, all of which were normal. Her lactic acid level was 8.8, repeat in the evening was 0.8. I would attribute this to her metformin. I have advised her to never take metformin. She will follow up with her primary care provider in [place]. She is returning later today. She will call me to get the results of her echocardiogram. FINAL DIAGNOSES: 1. Possible causes of her confusion include transient global amnesia, hypoglycemia, or arrhythmia. 2. Her lactic acidosis has resolved and is almost certainly due to metformin. 3. Diabetes. 4. Familial partial lipodystrophy. DISCHARGE MEDICATIONS: 1. Polyethylene glycol 17 g daily. 2. Docusate 100 mg daily. 3. Sodium one packet daily. 4. Cholecalciferol 1000 units daily. 5. Calcium carbonate 1200 mg daily. 6. Ascorbic acid 500 mg daily. 7. Pantoprazole 40 mg t.i.d. 8. Losartan 25 mg daily. 9. Ferrous gluconate 325 mg daily. 10. Aspirin 81 mg daily. 11. Ropinirole 0.5 mg daily. 12. Fluticasone nasal spray two sprays both nares daily. 13. Citalopram 20 mg daily. 14. [place]-3 fatty acids 2400 mg t.i.d. 15. Niacin ER 2000 mg daily. 16. Lovastatin 20 mg daily. 17. Insulin lispro as prescribed. 18. Glargine insulin 7 units daily in the evening. 19. Pioglitazone 45 mg daily. 20. Glipizide 10 mg b.i.d. 21. Magnesium oxide 250 mg b.i.d. [id number]/[facility] #: [id number] [facility] HEALTH SYSTEMIsaiah
--- NOTE | 2017-12-19 12:15 | ECHO ---
Patient: RAMEZ GAO [facility] Rec#: [id number] : 1960 Date: 12/19/2017 Age: 57y Height: 157.48 cm / 62.0 in Weight: 54.43 kg / 120.0 lbs Sex: F BSA: 1.54 Room#: 432 Admit Date#: 12/18/2017 Type: Inpatient Referring: Rolando Spencer MD Reading: Marquis Cannon MD Derrick Helper: Michelle Rincon [facility] Transthoracic Echocardiogram Indication: Palpitations BP: 119/61 HR: 100 Rhythm: Tachycardia Findings History: Palpitations with CP, DM. Technical Comments: The study quality is good. Completed at 1120. Left Ventricle: The left ventricular chamber size is normal. Mild concentric left ventricular hypertrophy is observed. Global left ventricular wall motion and contractility are within normal limits. There is normal left ventricular systolic function. The estimated ejection fraction is 60-65%. Normal left ventricular diastolic filling is observed. Left Atrium: The left atrial chamber size is normal. Right Ventricle: The right ventricular cavity size is normal. The right ventricular global systolic function is normal. Right Atrium: The right atrial cavity size is normal. Aortic Valve: The aortic valve is trileaflet. There is no evidence of aortic regurgitation. There is no evidence of aortic stenosis. Mitral Valve: The mitral valve leaflets are mildly thickened. There is no evidence of mitral regurgitation. Tricuspid Valve: The tricuspid valve leaflets are normal. There is a physiologic tricuspid regurgitation. Unable to estimate the right ventricular systolic pressure. Pulmonic Valve: The pulmonic valve appears normal. There is no evidence of pulmonic regurgitation. There is no pulmonic stenosis. Pericardium: There is no significant pericardial effusion. Aorta: There is no dilatation of the ascending aorta. There is no dilatation of the aortic arch. There is no dilation of the aortic root. Pulmonary Artery: The main pulmonary artery appears normal. Venous: The venous system is not well visualized. Conclusions There is normal left ventricular systolic function. The estimated ejection fraction is 60-65%. Global left ventricular wall motion and contractility are within normal limits. Normal cardiac chamber sizes. Functionally benign heart valves. There is no prior echocardiogram available to compare with at this time. Measurements Name Value Normal Range RVIDd (AP) 2D 2.1 cm (0.9 - 2.6) RVDdMajor (2D) 3.3 cm (2.2 - 4.4) RAd ISD 4CH 3.9 cm (3.4 - 4.9) RA (A4C)W 3.5 cm (2.9 - 4.6) IVSd (2D) 1.2 cm (0.6 - 1) LVPWd (2D) 0.9 cm (0.6 - 1) LVIDd (2D) 4.1 cm (3.6 - 5.4) LVIDs (2D) 2.6 cm - LV FS (2D) 36 % (25 - 45) Aortic Annulus 1.8 cm (1.4 - 2.6) Ao root diameter (2D) 2.6 cm (2.1 - 3.5) Ascending Ao 2.7 cm (2.1 - 3.4) Aortic arch 2.4 cm (1.8 - 3.4) Descending Ao 0.9 cm - LA dimension (AP) 2D 3.5 cm (2.3 - 3.8) LAd ISD 4CH 4.4 cm (2.9 - 5.3) LA ISD 4CH W 3.2 cm (2.5 - 4.5) Name Value Normal Range LA ESV SP 4CH (A/L) 23 ml - LA ESV SP 2CH (A/L) 39 ml - LA ESV BP (A/L) 31 ml - LA ESV BP (A/L) index 20.36 ml/m2 - LA ESV SP 4CH (MOD) 22 ml - LA ESV SP 2CH (MOD) 37 ml - Name Value Normal Range MV E-wave Vmax 1 m/sec - MV deceleration time 165 msec - MV A-wave Vmax 0.9 m/sec - MV E:A ratio 1.1 ratio - LV septal e' Vmax 0.11 m/sec - LV lateral e' Vmax 0.11 m/sec - LV E:e' septal ratio 9.09 ratio - LV E:e' lateral ratio 9.09 ratio - Name Value Normal Range AV Vmax 1.9 m/sec - AV VTI 39.6 cm - AV peak gradient 13.99 mmHg - AV mean gradient 6.7 mmHg - LVOT Vmax 1.3 m/sec - LVOT VTI 25.7 cm - LVOT peak gradient 6.87 mmHg - LVOT mean gradient 3.6 mmHg - Name Value Normal Range IVC diameter 1.2 cm - Name Value Normal Range PV Vmax 1 m/sec - PV peak gradient 4 mmHg -
[2017-12-19 13:19] VITALS: BP 130/67
== END 2017-12-19 15:00 | disposition home or self-care (01) ==
LOC: ED 10:37 → MEDTELE 15:35
PROVIDERS: ADMIT Internal Medicine; ATTEND Internal Medicine
DX: R41.0 Disorientation, unspecified (principal); E87.2 Acidosis; E11.9 Type 2 diabetes mellitus without complications; R00.2 Palpitations; R07.9 Chest pain, unspecified; E88.1 Lipodystrophy, not elsewhere classified; Z79.899 Other long term (current) drug therapy; Z79.4 Long term (current) use of insulin; R11.2 Nausea with vomiting, unspecified; R10.9 Unspecified abdominal pain
CPT/HCPCS: 36415; 70450; 71045; 71275; 74177; 80053; 81003; 82140; 82550; 82553; 83605; 83690; 83735; 83880; 84443; 84484; 85025; 85379; 85610; 85730; 86140; 87040; 93005; 93306; 96361; 96374; 99283; A9270-GY; G0378; J2405; J3475; Q9967